=== PATIENT | female | born 1985 | race Asian ===

== ENCOUNTER → 2018-01-05 | Day surgery (SDC) | payer BC ==
[~2018-01-05] MED LIST: CEFTRIAXONE SOD 1 GM VIAL ONE; DEXAMETHASONE SOD PHOS INJ 4 MG/ML VIAL ONE; FENTANYL CITRATE/PF 100MCG/2 ML INJ ONE; IOPAMIDOL 300MG/ML 50ML INFUS..BTL IV ONE; LIDOCAINE HCL 2% LOCAL INJ 5 ML SDV VIAL INJ ONE; MIDAZOLAM HCL 2 MG/2 ML VIAL ONE; ONDANSETRON HCL INJ 2 MG/ML VIAL ONE; PROPOFOL IV EMULSION 10 MG/ML 20 ML VIAL ONE; SEVOFLURANE INHAL SOLN 250 ML PEN BTL ONE
[2018-01-05 10:36] VITALS: BP 107/66
--- NOTE | 2018-02-10 03:13 | Operative Report ---
DATE OF PROCEDURE: January 05, 2018 PREOPERATIVE DIAGNOSES 1. Right ureterolithiasis. 2. Right indwelling ureteral stent. POSTOPERATIVE DIAGNOSES 1. Right ureterolithiasis. 2. Right indwelling ureteral stent. 3. Mild cystocele. 4. Mild rectocele. 5. Urethral hypermobility. OPERATIONS PERFORMED 1. Cystourethroscopy with removal of right indwelling ureteral stent (separately procedure performed for the diagnosis of the stent done with separate scope). 2. Right ureteroscopy with stone manipulation (separate procedure performed for the right nephrolithiasis, done with a separate scope). 3. Urological services for supervision and interpretation of ureteroscopy. 4. Interpretation of retrograde ureteropyelography. 5. Supervision of fluoroscopy. No radiologist present. 6. Pelvic examination under anesthesia. ANESTHESIA: General. COMPLICATIONS: None. CLINICAL SUMMARY: Jonathan Orellana is a 32-year-old woman who underwent ureteral stenting. She has had recurrent stones. She also has a history of previous urethral dilation for urethral stenosis. She is brought to the operating room to hopefully render her stent-free and stone-free. She is aware of the risks of bleeding, infection, injury to adjacent structures, need for additional procedures and elected to proceed. OPERATIVE PROCEDURE IN DETAIL: Informed consent was verified. Ms. Orellana was properly identified, taken to the operating room, placed on the cystoscopy table in supine position. Anesthesia was uneventfully begun. Patient was then carefully and gently re-positioned in dorsal lithotomy position with all pressure points well padded. Her genitalia were prepared and draped in usual sterile fashion. The 22.5-K[place] cystoscope sheath with obturator in place was atraumatically inserted in patient's urethra and bladder was drained. Panendoscopy revealed a stent emerging in the right ureteral orifice. There was mild inflammation around this region, but there were no suspicious lesions and there were no stones. A guidewire was then placed alongside the stent and guided to the level of the patient's kidney. The stent was then grasped, completely removed, and discarded. Semirigid ureteroscopy was then performed. We atraumatically inserted the ureteroscope alongside the guidewire up into the right ureter and the distal right ureter exhibited no stones. A flexible ureteroscope was then placed over the guidewire and guided to the level of the patient's kidney. Careful panendoscopy of the intrarenal collecting system revealed Garret plaques throughout. There was some fine sand that was loose. This sand was too small to be grasped with a basket. We irrigated this sand loose from the mucosa so that it may pass. Careful panendoscopy was again performed revealing no residual stones except for the sand that we irrigated and manipulated loose. We carefully reexamined the ureter as we exited. It exhibited no residual stones. Interpretation of retrograde ureteropyelography: Contrast was instilled in retrograde fashion via the ureteroscope. There were no tumors. There were no stones that were visible. There were no diverticula. There was chronic-appearing hydroureteronephrosis and fullness on the right hand side. Patient's bladder was then drained. The cystoscope was withdrawn. Pelvic examination revealed a mild cystorectocele with urethral hypermobility. No abnormal palpable pelvic masses could be appreciated. There were no obvious mucosal lesions. Patient was then uneventfully reversed from anesthesia and taken to the recovery room in stable condition. Explicit postop instructions were given. We will follow the patient up in the office. Job#: [id number]
--- OUTSIDE RECORDS SUMMARY | 2018-02-10 04:50 | XMS REPORT ---
Author Author [facility] Address Unknown Phone Unavailable Care Team Providers Care Rn Managed Care Name Role Phone MOE PINO Unavailable Unavailable Problems This patient has no known problems. Allergies, Adverse Reactions, Alerts This patient has no known allergies or adverse reactions. Medications This patient has no known medications. Results Test Description Test Time Test Comments Text Results Atomic Results Result Comments ABDOMEN-1VIEW (KUB) 2017-12-03 11:32:00 [place] [id number] Patient Name: IRIS GILES MR #: [id number] : 1985 Age/Sex: 32/F Req #: [id number] Adm Physician: Ordered by: MOE PINO MD Report #: [id number] Location: OR Room/Bed: Procedure: [id number] DX/ABDOMEN-1VIEW (KUB) Exam Date: 12/03/17 Exam Time: 1105 REPORT STATUS: Signed PROCEDURE: X-RAY ABDOMEN - KUB COMPARISON: None. INDICATIONS: PRE OPERATIVE FOR KIDNEY STONES FINDINGS: One view of the abdomen (AP supine) No dilated loops of bowel or abnormal air-fluid levels patterns. No evidence of pneumoperitoneum. Five non-rib bearing lumbar type vertebral bodies identified. Kidneys are partially obscured by stool and bowel gas. Questionable 5 mm stone projected over the lower pole of the left kidney CONCLUSION: Questionable 5 mm stone projected over the lower pole of the left kidney. Dictated by: Sylwia Marina M.D. on 12/03/2017 at 11:32 Electronically approved by: Sylwia Marina M.D. on 12/03/2017 at 11:32 Dictated By: SYLWIA MARINA MD [id number] Transcribed By: SAVAGE on 12/03/17 1132 COPY TO: MOE PINO MD
== END | disposition home or self-care (01) ==
LOC: OR 07:51
PROVIDERS: ATTEND Urology
DX: N20.1 Calculus of ureter (principal); Z96.0 Presence of urogenital implants; N81.10 Cystocele, unspecified; N81.6 Rectocele; N36.41 Hypermobility of urethra
CPT/HCPCS: 52310; 52330; 74420; 81025; J0696; J1100; J2001; J2250; J2405; Q9967